=== PATIENT | female | born 1995 | race Caucasian/White ===

== ENCOUNTER 2018-03-15 12:44 | Emergency (ER) | payer OTHER, SELFPAY ==
[2018-03-15 12:45] VITALS: BP 113/73; PULSE 85; RESP 16; TEMP 36.5; O2SAT 97; BMI 29.5
--- NOTE | 2018-03-15 15:47 | ED.VISSUMM ---
- ER Visit Summary Date of Service: 03/15/18 Chief Complaint: Back pain after fall History of Present Illness: The patient is a 22 F who presents with pain in her back that began after a fall today. Patient states she fell down approximately 3 steps. Patient states she landed on her tailbone and hit her thoracic spine. Patient denies any head injury or loss of consciousness. Patient states she thinks she blacked out for a second but denies ever losing any consciousness. Patient denies any paresthesias or weakness. Patient was able to ambulate after the fall. Patient states her pain is localized to the thoracic spine area. Patient denies any other injuries. Physical Examination: Vital signs are stable. Patient is afebrile. Patient is in no acute distress. Musculoskeletal exam reveals tenderness over the thoracic spine and paraspinal muscles. There is no bony crepitance or step-off. There is good range of motion. Heart was regular rate and rhythm. Lungs are clear and equal bilaterally. There is good respiratory effort noted. Abdomen is soft nontender. Cranial nerves II through XII are intact. There are no focal motor or sensory deficits noted. Pupils are equal, round, and reactive to light bilateral. Extraocular muscles are intact. Tympanic membranes are clear bilaterally. There is no hemotympanum. The remaining physical exam is within normal limits. Test Results: X-rays of the thoracic spine were obtained. There is no acute fracture noted. Emergency Department Course and Treatment: Patient was instructed to use ice to the area. Patient was instructed to take Tylenol or ibuprofen as needed for pain. Patient was instructed to follow-up with her primary care physician in 7-10 days. Patient understood and was agreeable with the plan. All questions were answered. Disposition: Discharged home Impression: Thoracic strain This note was generated with [employer] dictation software. It may contain incorrect words, spelling, and punctuation that were not noted in review of the chart prior to signing ED Disposition - Plan for ED Patient: Disposition: Home or Assisted Living Chief Complaint: Fall Diagnosis: Acute thoracic myofascial strain Instructions: ED Sprain Thoracic Spine Referrals: Care Physician,No Primary [Primary Care Provider] -
[2018-03-15 15:59] VITALS: BP 108/70; PULSE 79; RESP 16; O2SAT 99
== END 2018-03-15 15:59 | disposition home or self-care (01) ==
PROVIDERS: Emergency Provider Emergency Medicine
DX: S29.012A Strain of muscle and tendon of back wall of thorax, initial encounter (principal); M54.2 Cervicalgia; W10.9XXA Fall (on) (from) unspecified stairs and steps, initial encounter; Y93.9 Activity, unspecified; Y92.9 Unspecified place or not applicable; Y99.9 Unspecified external cause status; F41.9 Anxiety disorder, unspecified; Z79.899 Other long term (current) drug therapy
CPT/HCPCS: 72072; 99282